=== PATIENT | female | born 1955 | race Caucasian/White ===

== ENCOUNTER → 2021-07-30 09:11 | Outpatient (CLI) | payer OTHER, SELFPAY ==
--- NOTE | 2021-07-30 | DI.RAD.S_ITS ---
PROCEDURE: FL BARIUM SWALLOW W SPEECH INDICATIONS: Dysphagia, unspecified COMPARISON: None. TECHNIQUE: Examination was conducted in conjunction with speech pathology per standard protocol. In the lateral projection, filming was performed of the patient swallowing. AP projection filming may also be performed with patient swallowing. COMPARISON: FINDINGS: Function: The oral preparatory phase appears normal, with proper containment. The subsequent oral propulsive phase and pharyngeal phase of swallowing also appear normal with all proffered substances. Small tertiary contraction waves noted in distal esophagus. Gastroesophageal reflux is noted which occurred without provocative maneuvers. No laryngotracheal penetration or aspiration. No pathologic vallecular pooling. Morphology: No cricopharyngeal bar is identified. No cervical esophageal webs. No Zenker's diverticulum. No strictures. IMPRESSION: 1. No laryngotracheal penetration or aspiration. 2. No diverticulum. 3. No pathologic vallecular or piriform sinus pooling. 4. Mild distal esophageal dysmotility. 5. Gastroesophageal reflux. Dictated by: Hilda Lawton MD, PhD on 07/30/2021 at 10:49 Approved by: Hilda Lawton MD, PhD on 07/30/2021 at 10:50
--- NOTE | 2021-07-30 13:11 | ST.SWALLOW ---
Visit Care Team Role Provider Type Patricia De Paz MD Primary Care Provider Physician Specialty: Internal Medicine Address: [address] [place] [address], [id number] Email: [email or web address] Chris Parada MD Attending Provider Non-Staff Referring Provider Specialty: Otolaryngology (ENT) Address: [address] [place] [address], [facility] [address], [place], [address] Email: Modified Barium Swallow Study FOREIGN CORRESPONDENT Modified Barium Swallow Study Start: 07/30/21 18:05 Freq: Status: Active Protocol: Document 07/30/21 18:05 TK (Rec: 07/30/21 18:05 TK [id number]) Modified Barium Swallow Study Total Time Visit Start Time 09:30 Visit Stop Time 10:10 Total Visit Minutes [address] Chris Parada Reason for Referral Dysphagia, unspecified Setting Setting Outpatient Care Patient Information Identification Type Name,ID Card Patient History History was received from pt report. 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 Since surgery, the pt has had difficulty swallowing solids and large pills, feeling that they stick in the throat somewhere between the esophagus and the trachea, but not in either. She has a consistent globus sensation which worsens after eating. She sometimes needs to cough to clear the sticking food/pill and occasionally can cough up food residue even an hour after eating. She now must swallow pills one at a time, where prior to surgery she swallowed multiple large pills at a time. Additionally, the pt reported her voice is somewhat lower in pitch since surgery, and after lengthy talking, she feels sore and tight muscles around the larynx and pharynx. She described a raspy feeling throat but denied hoarseness of voice. Subjective Observations The pt arrived on time and provided case history. MBSS procedure and goals were explained, and the pt was agreeable to proceeding. The pt is gluten intolerant. No gluten-free solid texture was available; therefore, the cookie trial was not included in the study. Patient Positioning Position View Lat-A/P Imaging Lateral View Textures Administered Trials Presented Thin Liquid via Spoon,Thin Liquid via Cup,[place] Liquid via Spoon,[place] Liquid via Cup,Honey Liquid via Spoon, Dysphagia Blenderized Textures Oral Phase Source: MBSIMP (TM) (C) Bolus Specific Scoring Grid Lip Closure No Impairment (WNL) Tongue Control During Bolus Hold No Impairment (WNL) Bolus Prep/Mastication No Impairment (WNL) Bolus Transport/Lingual Motion No Impairment (WNL) A/P Lingual Propulsion Delay No Oral Residue Minimal Impairment Residue Clearing No Impairment (WNL) Nasal Regurgitation No Additional Oral Phase Observations Oral Peripheral Exam: WNL. Pt has natural dentition in good condition. Oral prep phase was WNL with increased effort and difficulty initiating a/p propulsion with thick paste. The pt consistently performed 2 swallows per bolus to clear mild oral residue. Pharyngeal Phase Source: MBSIMP (TM) (C) Bolus Specific Scoring Grid Delayed Initiation of Pharyngeal Swallow Yes: With thick paste bolus only Soft Palate Elevation No Impairment (WNL) Tongue Base Strength/Range of Motion Mild Impairment Residue Along the Tongue Base Yes Clearance of Residue Along Tongue Base No Impairment (WNL) Laryngeal Elevation Mild Impairment Anterior Hyoid Movement No Impairment (WNL) Epiglottic Range of Motion Mild Impairment Vallecular Residue Yes: Trace to mild, greater on right side Clearance of Vallecular Residue WFL Laryngeal Vestibular Closure No Impairment (WNL) Pharyngeal Stripping Wave Mild Impairment Pharyngeal Contraction Mild Impairment Posterior Pharyngeal Wall Residue No Upper Esophageal Sphincter Opening WFL Residue in the Pyriform Sinuses Yes: Trace Clearance of Residue in the Pyriform No Impairment (WNL) Sinuses Esophageal Clearance Upright Position Mild Impairment Pharyngoesophageal Backflow Observed No Additional Pharyngeal Phase Observations No laryngeal penetration or tracheal aspiration was observed with all trials. The epiglottis inverts to or beyond horizontal position with all trials, making contact with posterior pharyngeal wall. This, in addition to mildly weak base of tongue, results in trace to mild vallecular residue, which clears easily with subsequent swallow, which the pt consistently performed independently. The stripping wave of superior pharyngeal constrictors was mildly reduced; stripping wave of medial and inferior constrictors was greater, likely secondary to ACDF surgery at those levels. Prosthetic disks at C4-C5 and C5-C6 mildly protrude into pharynx and proximal esophagus , resulting in mild narrowing at these levels and trapping of residue from the paste trial only. The pt sensed this residue and required 4 swallows of water to clear. A/P View Textures Administered Trials Presented [place] Liquid via Cup, Dysphagia Blenderized Textures ,Barium Tablet A/P View Observations Pharyngeal Contraction Mild Impairment Residue Observed Valleculae Right Esophageal Clearance Upright Position Mild Impairment Additional Observations Mild vallecular reside observed with paste trial, greater on right side than left. This mostly but not entirely cleared with 3 subsequent swallows. Bilateral bulging of pharyngeal whittaker was noted, indicating muscular weakness. Esophageal Observations Esophageal Function Retrograde movement with NTL and paste was noted at proximal esophagus without backflow into the pharynx. Mild distal esophageal dysmotility was observed and reported, as well as gastroesophageal reflux, by Radiologist. Clinical Impressions Dysphagia Type Mild Pharyngeal Dysphagia Findings The pt presents with mild pharyngeal dysphagia secondary to reduced strength of pharyngeal musculature likely resulting from ACDF surgery. Mild intrusion from cervical prosthetic disks into inferior pharynx and proximal esophagus reduce flow of complex bulky boluses, as seen with trial of paste in today's study. The epiglottis also makes contact with the pharyngeal wall. These conditions may contribute to the pt's sticking sensation and difficulty swallowing large pills, as mild residue was observed both at the vallecula, particularly the right side, and the proximal esophagus. Vallecular residue cleared easily with subsequent swallow, but clearance of proximal esophagus required multiple swallows of thin liquid to clear. Additionally, mild distal esophageal dysmotility and gastroesophageal reflux was noted by Radiologist and likely contributes to the patient's symptoms as well. Referral to GI is recommended for further assessment of esophagus and potential diagnosis and treatment of GERD. The pt may benefit from a short course of dysphagia therapy targeting exercises to increase strength of pharyngeal musculature to improve efficiency of swallow and reduce pharyngeal residue as much as possible, although results may be limited due to anatomical structures impacted by presence of prosthetic disks. Rehabilitation Potential Good Patient Appropriate for Therapy Yes: Pt may benefit from short course of dysphagia therapy. Recommendations Diet Liquids Order Thin Diet Order Regular Medication Recommendation Whole in Carrier,One at a Time Comments Consider splitting tablets or draining capsules into carrier if possible Aspiration Precautions Recommended Precautions Upright at 90 Degrees, Alternate Liquids/Solids,Small Bites/Sips,Effortful Swallow Additional Precautions Chew very well and follow with liquid wash and double, effortful swallow Treatment Plan Therapy Recommendations Outpatient Speech Therapy Recommended Referrals GI Consult Short Term Goals Education and training of exercises to increase pharyngeal muscular strength. Shelter Goals Safe tolerance of regular textures and thin liquids with increased comfort.
== END ==
PROVIDERS: PCP Internal Medicine; Referring Provider Otolaryngology Otolaryngology/Facial Plastic Surgery; Visit Provider Otolaryngology Otolaryngology/Facial Plastic Surgery
DX: R13.10 Dysphagia, unspecified (principal); K22.4 Dyskinesia of esophagus; K21.9 Gastro-esophageal reflux disease without esophagitis
CPT/HCPCS: 74230; 92611